=== PATIENT | male | born 1965 | race Two or more races ===

== ENCOUNTER 2024-09-21 15:27 | Emergency (ER) | payer MEDICAID, SELFPAY ==
[2024-09-21 16:18] VITALS: BP 145/88; PULSE 88; RESP 18; TEMP 36.8; O2SAT 95; BMI 28.3
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
[2024-09-21] MEDS: CYCLObenzaPRINE 5 MG TABLET PO (16:40)
[2024-09-21] MEDS: IBUPROFEN TAB 400 MG TABLET 800 MG PO (16:40)
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
== END 2024-09-21 17:46 | disposition home or self-care (01) ==
PROVIDERS: Emergency Provider Emergency Medicine; PCP Family Medicine
DX: S16.1XXA Strain of muscle, fascia and tendon at neck level, initial encounter (principal); S29.9XXA Unspecified injury of thorax, initial encounter; V89.2XXA Person injured in unspecified motor-vehicle accident, traffic, initial encounter; Y92.410 Unspecified street and highway as the place of occurrence of the external cause
CPT/HCPCS: 71046; 72040; 99283; A9270

== ENCOUNTER 2025-02-12 08:56 | Emergency (ER) | payer SELFPAY ==
[2025-02-12 08:57] VITALS: BMI 31.1
[2025-02-12 09:31] VITALS: BP 154/78; PULSE 65; RESP 16; TEMP 36.7; O2SAT 95; BMI 28.5
--- NOTE | 2025-02-12 09:35 | PD.EDRME ---
Rapid Medical Screening Exam [facility] Arrival date/time: 02/12/25 08:56 59-year-old male with a history of gout presents to the emergency room with a chief complaint of an effusion to his left elbow. Patient states that this has been going on for the last week and has progressively gotten worse. Patient states he takes his medication as prescribed. I have greeted and performed a focused initial assessment of this patient. A comprehensive ED assessment and evaluation of the patient, analysis of all test results, and completion of the medical decision making process will be conducted by additional ED providers. Chief Complaint: Extremity Injury, Upper Time Seen by Provider: 02/12/25 09:22 Vital signs: Vital Signs Temperature 98.1 F 02/12/25 09:31 Pulse Rate 65 02/12/25 09:31 Respiratory Rate 16 02/12/25 09:31 Blood Pressure 154/78 H 02/12/25 09:31 Pulse Oximetry (%) 95 02/12/25 09:31 Oxygen Delivery Method Room Air 02/12/25 09:31 Vital signs reviewed by provider: Yes
[2025-02-12 10:15] LABS: Basophils % (Auto) 1 % (0-2.5); Eosinophils # (Auto) 0.3 Thou/mm3 (0.0-0.5); Eosinophils % (Auto) 3 % (0-10); Hematocrit 38.3 % (41.0-53.0); Hemoglobin 12.8 g/dL (13.5-16.0); Immature Granulocytes % (Auto) 0 % (0-0); Immature Granulocytes Auto 0.03 Thou/mm3 (0.00-0.00); Lymphocytes # (Auto) 1.2 Thou/mm3 (1.0-4.8); Lymphocytes % (Auto) 15 % (10-50); Mean Corpuscular HGB Conc 33.4 g/dl (31.0-37.0); Mean Corpuscular Hemoglobin 28.6 pg (25.0-35.0); Mean Corpuscular Volume 86 fL (80-100); Monocytes # (Auto) 0.5 Thou/mm3 (0.0-0.8); Monocytes % (Auto) 6 % (0-12); Neutrophils % (Auto) 74 % (37-80); Nucleated Red Blood Cell % 0 /100 WBC (0); Platelet Count 288 Thou/mm3 (140-440); Red Blood Count 4.48 Miln/mm3 (4.50-5.90); White Blood Count 8.1 Thou/mm3 (3.8-10.6)
[2025-02-12] MEDS: COLCHICINE 0.6 MG TABLET 1.2 MG PO (10:26)
[2025-02-12 11:07] VITALS: BP 158/82; PULSE 61; RESP 17; TEMP 37; O2SAT 96
[2025-02-12 11:08] LABS: Alanine Aminotransferase 51 U/L (10-49); Albumin, Serum 4.2 gm/dL (3.4-4.8); Albumin/Globulin Ratio 1.4 (1.2-2.2); Alkaline Phosphatase 367 U/L (46-116); Anion Gap 10 (7-16); Aspartate Amino Transferase 23 U/L (0-34); BUN/Creatinine Ratio 21 Ratio (12-20); Bilirubin,Total 0.5 mg/dL (0.3-1.2); Blood Urea Nitrogen 17 mg/dL (9-23); Calcium 8.8 mg/dL (8.3-10.6); Calcium (Corrected) 8.8 mg/dL (8.5-10.1); Carbon Dioxide 27.1 mMol/L (20.0-31.0); Chloride 103 mMol/L (98-107); Creatinine (Component) 0.8 mg/dL (0.6-1.3); Globulin 3.1 gm/dL (2.3-3.5); Glucose 158 mg/dL (74-106); Osmolality,Calculated 283 (275-295); Sodium 140 mMol/L (136-145); Total Protein 7.3 gm/dL (5.7-8.2); eGFR > 60 See Note
[2025-02-12 13:37] VITALS: BP 168/85; PULSE 62; RESP 17; TEMP 36.7; O2SAT 98
--- NOTE | 2025-02-12 13:53 | EDNOTE_ITS ---
ED General RME/HPI General Chief complaint: Extremity Injury, Upper Stated complaint: LEFT ELBOW DEFORMITY X1 WEEK Time Seen by Provider: 02/12/25 09:22 Arrival date/time: 02/12/25 08:56 CC: Left elbow pain and swelling for the last week. However when asked the patient is had swelling in his left elbow for approximately 1 year it just enlarged in the last week. 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 No prior history of similar events. No medicines take for the pain currently the pain is a 2-3 out of 10 scale. RME / HPI RME / HPI narrative: 02/12/25 08:56 59-year-old male with a history of gout presents to the emergency room with a chief complaint of an effusion to his left elbow. Patient states that this has been going on for the last week and has progressively gotten worse. Patient states he takes his medication as prescribed. I have greeted and performed a focused initial assessment of this patient. A comprehensive ED assessment and evaluation of the patient, analysis of all test results, and completion of the medical decision making process will be conducted by additional ED providers. Related Data Previous Rx's ?Medication ?Instructions ?Recorded colchicine 0.6 mg tablet (Colcrys) 0.6 mg PO QDAY #30 tabs 05/02/17 ibuprofen 800 mg tablet 800 mg PO TID #30 tabs 07/07 cyclobenzaprine 5 mg tablet 5 mg PO HS PRN muscle spas m #7 tabs 09/21/24 naproxen 500 mg tablet,delayed 500 mg PO BID #14 tabs 09/21/24 release Allergies Allergy/AdvReac Type Severity Reaction Status Date / Time No Known Allergies Allergy Verified 02/12/25 08:59 Review of Systems Review of Systems Narrative Review of Systems: GEN: No fever, no chills, no weight loss EYES: No discharge, no visual changes, no pain HEENT: No ear pain, no congestion, no sore throat PULM: No shortness of breath, no cough, no congestion CV: No chest pain, no dyspnea on exertion, no palpitations GI: No nausea, no vomiting, no diarrhea, no pain, no constipation : No frequency, no urgency, no dysuria MUSC/SKEL: + joint pain, no back pain SKIN: No rash PSYCH: No hallucinations, no depression HEME/LYMPH: No easy bleeding or bruising tendencies NEURO: No weakness, no headache Past Medical History Social History SMOKING STATUS: Never smoker ED Exam Narrative Physical exam: [General: Not in any no acute distress Head normocephalic HEENT: Within acceptable limits Neck is supple nontender Chest equal chest rise nontender to palpation Respiratory: Clear to auscultation no wheezes crackles or rubs CV: Rate rhythm is regular no murmurs rubs or clicks Abdomen is distended secondary to body habitus soft nontender no masses positive bowel sounds all 4 quadrants Back: No CVA tenderness no spinous process tenderness from cervical spine thoracic and lumbar spine Skin: Intact no petechiae rash induration ulceration or crepitus Extremities: Left upper extremity: The patient has olecranon effusion. Full range of motion no pops or clicks, cap refill in the digits less than 2 seconds neurosensory intact. Moving all other extremities against resistance cap refill less than 2 seconds neurosensory intact Neuro: Awake alert oriented x3 Glascow coma 15 no focal deficits] Course Course Course Narrative: This is olecranon bursa infusion. Patient will be placed in Keith wrap needs to take it off during the night to leave and on during days he can be discharged home for follow-up with the PCP. Quality Measures none Orders Category Date Time Status CBC Stat Lab 02/12/25 09:44 Completed CMP [Comprehensive Metabolic Panel] Stat Lab 02/12/25 09:44 Completed Uric Acid Stat Lab 02/12/25 09:44 Completed Colchicine Med 02/12/25 09:34 Discontinued 1.2 mg PO X1 ONE Vital Signs Vital signs: Vital Signs Temperature 98.1 F 02/12/25 09:31 Pulse Rate 65 02/12/25 09:31 Respiratory Rate 16 02/12/25 09:31 Blood Pressure 154/78 H 02/12/25 09:31 Pulse Oximetry (%) 95 02/12/25 09:31 Oxygen Delivery Method Room Air 02/12/25 09:31 Discharge Plan Plan Patient Disposition: HOME (Self Care) Patient condition on transfer: Stable Prescriptions/Referrals Prescriptions/Med Rec: No Action colchicine [Colcrys] 0.6 MG tablet 0.6 mg PO QDAY Qty: 30 0RF ibuprofen 800 mg tablet 800 mg PO TID Qty: 30 0RF naproxen 500 mg tablet,delayed release (DR/EC) 500 mg PO BID Qty: 14 0RF cyclobenzaprine 5 mg tablet 5 mg PO HS PRN (Reason: muscle spasm) Qty: 7 0RF Referrals: Gerson Mercado MD [Primary Care Provider] - In 1 week Problem List Clinical Impression: Effusion of left olecranon bursa Patient/Caregiver Discharge Instructions Education Materials: ED Bursitis Elbow Olecranon Print Language: [place] Stand Alone Forms: Patricia Award Info., Patient Portal Info Letter PA/MARKET INTELLIGENCE CONSULTANT Supervising Physician PA/MARKET INTELLIGENCE CONSULTANT Supervising Physician: Tk Saeed ENP MDM Clinical Information Provided by: patient Medical Records reviewed [facility] Meds/Rx considered, not ordered None Labs/Rad/Tests considered, not ordered None Chronic Illness/Social Conditions which may negatively complicate care or outcome(s)-explain: None or not applicable Labs Labs: interpreted by me Lab(s) Interpretation(s): CBC shows no acute leukocytosis mild anemia of 12.8 and 38.8 respectively for hemoglobin hematocrit no thrombocytopenia CMP shows no acute electrolyte imbalances renal impairment other than a glucose of 158. ALT 51 alk phos of 367 AST is within acceptable limits no T. bili elevation Imaging Imaging interpretation: none Medication Administration(s) Medication Administration History Discontinued Medications Colchicine (Colchicine 0.6 Mg Tablet) 1.2 mg PO X1 ONE Stop: 02/12/25 09:35 Last Admin: 02/12/25 10:26 Dose: 1.2 mg Documented By: DO Comments: INTERNET DOWN. UNABLE TO SCAN Diagnosis Differential Diagnosis ED Complaint MDM: Septic joint bursitis olecranon effusion
== END 2025-02-12 14:11 | disposition home or self-care (01) ==
PROVIDERS: Nurse Practitioner Family; Emergency Provider Emergency Medicine; PCP Family Medicine
DX: M25.422 Effusion, left elbow (principal)
CPT/HCPCS: 36415; 80053; 84550; 85025; 99283; A9270